=== PATIENT | male | born 1950 | race Caucasian/White ===

== ENCOUNTER → 2017-02-20 | Outpatient (CLI) | payer OTHER ==
[~2017-02-20] MED LIST: IOPAMIDOL (ISOVUE 370) 100 ML BTL IV ONE
== END ==
LOC: FIMAGING 08:52
PROVIDERS: ATTEND Nurse Practitioner Adult Health
DX: I71.2 Thoracic aortic aneurysm, without rupture (principal); I25.10 Atherosclerotic heart disease of native coronary artery without angina pectoris
CPT/HCPCS: 71275; Q9967

== ENCOUNTER 2017-04-15 09:51 | Inpatient (IN) | payer OTHER ==
[2017-04-15] MEDS ORDERED: FAMOTIDINE 20 MG TAB PO ONE (09:57)
[2017-04-15] MEDS ORDERED: diphenhydrAMINE 25 MG CAP PO ONE (09:57)
[2017-04-15] MEDS ORDERED: DIAZEPAM 5 MG TAB PO ONE (09:57)
[2017-04-15] MEDS ORDERED: NS 1,000 ML IV ONE (09:57)
[2017-04-15] MEDS ORDERED: ASPIRIN EC 325 MG TAB PO ONE (09:57)
--- NOTE | 2017-04-15 10:17 | CPEKG ---
Heart Rate: 51 RR Interval: 1176 P-R Interval: 188 QRSD Interval: 84 QT Interval: 444 QTC Interval: 409 P [place]: 46 QRS [place]: -40 T Wave [place]: 33 EKG Severity - ABNORMAL ECG - EKG Impression: SINUS RHYTHM EKG Impression: LEFT ANTERIOR FASCICULAR BLOCK EKG Impression: LEFT VENTRICULAR HYPERTROPHY Electronically Signed By: Gama Traylor 17-Apr-2017 13:08:29
[2017-04-15 10:48] LABS: PLATELET COUNT 142 10^3/uL (150-400)
[2017-04-15 10:57] LABS: INR 1.01 (0.83-1.16); PROTIME(PATIENT) 13.5 SEC (12.0-15.0)
[2017-04-15] MEDS ORDERED: LIDOCAINE 1% 300 MG/30 ML SDV ONE (11:30)
[2017-04-15] MEDS ORDERED: fentaNYL 100 MCG/2 ML INJ ONE (11:31)
[2017-04-15] MEDS ORDERED: MIDAZOLAM 2 MG/2 ML VIAL ONE (11:31)
[2017-04-15] MEDS ORDERED: IOPAMIDOL (ISOVUE-370) 150 ML BTL IV ONE (11:31)
[2017-04-15] MEDS ORDERED: VERAPAMIL 5 MG/2 ML VIAL ONE (15:18)
[2017-04-15] MEDS ORDERED: HEPARIN 10,000 UNIT/10 ML MDV (1,000 UNIT/ML) ONE (15:18)
--- NOTE | 2017-04-15 18:39 | PDGENHP ---
History and Physical - Chief Complaint enlarging aorta - History of Present Illness 65 yo male with nonobstructive CAD and a dilated ascending aorta, seen by surveillance CTA in Feb 2017 to have a slight increase in internal diameter of the mid ascending aorta from 4.7 cm to 4.9 cm, and elected to proceed with ascending aortic replacement. No arch vessel involvement or structural abnormalities of the aortic valve. Admitted in advance of scheduled surgery to complete risk stratification. Has abided by activity restrictions (resistance training) and maintained good control of his BP. Denies any perceivable functional limitations. History Information - Allergies/Home Medication List Allergies/Adverse Reactions: No Known Allergies Allergy (Verified 03/13/17 14:34) Home Medications: Atorvastatin Calcium [Lipitor 80 mg] 80 mg PO HS 03/11/17 [Last Taken 04/14/17] Herbals/Supplements -Info Only 1 ea PO DAILY 03/11/17 [Last Taken 03/18/17] MIRTAZAPINE [Remeron 7.5 mg] 7.5 mg PO HS 03/11/17 [Last Taken 04/14/17] Multivitamins [Multivitamin (*)] 1 each PO DAILY 03/11/17 [Last Taken 03/18/17] [place]-3 Fatty Acids [Fish Oil 1000 mg (*)] 1,000 mg PO DAILY 03/11/17 [Last Taken 03/18/17] PARoxetine HCL [Paxil 20mg (*)] 20 mg PO HS 03/11/17 [Last Taken 04/14/17] clonazePAM [Klonopin (*)] 0.25 mg PO HS 04/14/17 [Last Taken 04/14/17] I have personally reviewed and updated: family history, medical history, social history - Past Medical History coronary artery disease ([facility] in 2016 notable for 20% ostial LAD lesion and luminal irregs of RCA), cataracts (traumatic, left eye; permanent blurry vision) , hypertension, hyperlipidemia Additional medical history: anxiety with depression - Surgical History Reports: no pertinent surgical hx - Family History Positive for: vascular disease, CAD - Social History Smoking Status: Former smoker (stopped over 30 yrs ago) Review of Systems Review of Systems: Constitutional: Reports: no symptoms EENMT: Reports: no symptoms Cardiac: Reports: no symptoms Respiratory: Reports: no symptoms Gastrointestinal: Reports: no symptoms Genitourinary: Reports: no symptoms Muscolosketal: Reports: no symptoms Skin: Reports: no symptoms Neurological: Reports: no symptoms Hematologic/Lymphatic: Reports: no symptoms Physical Exam Physical Exam: Temp Pulse Resp BP Pulse Ox 36.4 C 42 L 14 118/75 95 04/15/17 17:51 04/15/17 17:51 04/15/17 17:51 04/15/17 17:51 04/15/17 17:51 Constitutional: no apparent distress, appears nourished Eyes: anicteric sclera Ears, Nose, Mouth, Throat: moist mucous membranes, other (no visible dental disrepair) Cardiovascular: regular rate and rhythym, diastolic murmur (faint) Peripheral Pulses: 2+: dorsalis-pedis (R), dorsalis-pedis (L) Respiratory: clear to auscultation Gastrointestinal: normoactive bowel sounds, soft, non-tender abdomen Genitourinary: no bladder fullness Skin: warm, normal color, no rashes or abrasions Musculoskeletal: other (symmetric tone) Psychiatric: interacting appropriately, not anxious Lab Data & Imaging Review 04/15/17 10:30 04/16/17 05:51 WBC 4.21 10^3/uL (3.80-9.50) 04/15/17 10:30 RBC 4.79 10^6/uL (4.40-6.38) 04/15/17 10:30 Hgb 15.9 g/dL (13.7-17.5) 04/15/17 10:30 Hct 44.5 % (40.0-51.0) 04/15/17 10:30 MCV 92.9 fL (81.5-99.8) 04/15/17 10:30 MCH 33.2 pg (27.9-34.1) 04/15/17 10:30 MCHC 35.7 g/dL (32.4-36.7) 04/15/17 10:30 RDW 12.8 % (11.5-15.2) 04/15/17 10:30 Plt Count 142 10^3/uL (150-400) L 04/15/17 10:30 MPV 9.4 fL (8.7-11.7) 04/15/17 10:30 Neut % (Auto) 54.3 % (39.3-74.2) 04/15/17 10:30 Lymph % (Auto) 29.5 % (15.0-45.0) 04/15/17 10:30 [place] % (Auto) 10.5 % (4.5-13.0) 04/15/17 10:30 Eos % (Auto) 4.0 % (0.6-7.6) 04/15/17 10:30 Baso % (Auto) 1.2 % (0.3-1.7) 04/15/17 10:30 Nucleat RBC Rel Count 0.0 % (0.0-0.2) 04/15/17 10:30 Absolute Neuts (auto) 2.29 10^3/uL (1.70-6.50) 04/15/17 10:30 Absolute Lymphs (auto) 1.24 10^3/uL (1.00-3.00) 04/15/17 10:30 Absolute Monos (auto) 0.44 10^3/uL (0.30-0.80) 04/15/17 10:30 Absolute Eos (auto) 0.17 10^3/uL (0.03-0.40) 04/15/17 10:30 Absolute Basos (auto) 0.05 10^3/uL (0.02-0.10) 04/15/17 10:30 Absolute Nucleated RBC 0.00 10^3/uL (0-0.01) 04/15/17 10:30 Immature Gran % 0.5 % (0.0-1.1) 04/15/17 10:30 Immature Gran # 0.02 10^3/uL (0.00-0.10) 04/15/17 10:30 PT 13.5 SEC (12.0-15.0) 04/15/17 10:30 INR 1.01 (0.83-1.16) 04/15/17 10:30 Sodium 144 mEq/L (135-145) 04/15/17 10:30 Potassium 4.7 mEq/L (3.5-5.2) 04/15/17 10:30 Chloride 106 mEq/L (97-110) 04/15/17 10:30 Carbon Dioxide 23 mEq/l (22-31) 04/15/17 10:30 Anion Gap 15 mEq/L (8-16) 04/15/17 10:30 BUN 24 mg/dL (7-23) H 04/15/17 10:30 Creatinine 1.1 mg/dL (0.7-1.3) 04/15/17 10:30 Estimated GFR > 60 04/15/17 10:30 Glucose 90 mg/dL (70-100) 04/15/17 10:30 Hemoglobin A1c 5.5 % (4.0-6.0) 04/15/17 10:30 Estim Average Glucose 111 mg/dL (68-126) 04/15/17 10:30 Calcium 9.5 mg/dL (8.5-10.4) 04/15/17 10:30 Magnesium 1.8 mg/dL (1.6-2.3) 04/15/17 10:30 Triglycerides 91 mg/dL (40-150) 04/15/17 10:30 Cholesterol 133 mg/dL (140-220) L 04/15/17 10:30 Cholesterol Risk Factr 0.8 (0.2-1.0) 04/15/17 10:30 LDL Cholesterol, Calc 81 mg/dL (80-100) 04/15/17 10:30 LDL Risk Factor 0.8 (0.2-1.0) 04/15/17 10:30 VLDL Cholesterol 18 mg/dL (8-25) 04/15/17 10:30 Non-HDL Cholesterol 99 mg/dL (90-129) 04/15/17 10:30 HDL Cholesterol 34 mg/dL (40-65) L 04/15/17 10:30 LDL/HDL Ratio 2.38 RATIO (1.00-3.64) 04/15/17 10:30 Cholesterol/HDL Ratio 3.91 RATIO (1.00-4.97) 04/15/17 10:30 Patient ABO/Rh O POSITIVE 04/15/17 10:30 Antibody Screen NEGATIVE 04/15/17 10:30 Imaging Review: Feb 2017 CTA results reviewed by Dr Davis with patient and spouse in clinic. [facility] today, to my view, neg for significant progression of LAD or RCA disease. Visualized and Interpreted EKG results: Yes EKG Interpretation: Positive for: LVH, other (SB 50, LAFB) Assessment & Plan Assessment: Aneurysmal ascending aorta Trileaflet aortic valve with mild AI and no Nonobstructive CAD with preserved biventricular systolic fx Sinus bradycardia Plan: Ascending aortic replacement in am. Consents per Dr Davis.
[2017-04-15] MEDS ORDERED: ATROPINE SULFATE 1 MG/10 ML SYR IVP PRN (19:18)
[2017-04-15] MEDS ORDERED: CHLORHEXIDINE GLUC HIBICLENS 118 ML BTL TP SCH (21:00)
[2017-04-15] MEDS: clonazePAM 0.5 MG TAB PO SCH (22:24)
[2017-04-15] MEDS: PARoxetine HCL 20 MG TAB PO SCH (22:24)
[2017-04-15] MEDS: MIRTAZAPINE 15 MG TAB PO SCH (22:25)
[2017-04-15] MEDS: MUPIROCIN 2% 22 GM OINT NS SCH (22:29)
--- NOTE | 2017-04-16 00:15 | CPIP ---
[f rep st] INVASIVE CARDIAC PROCEDURE DATE OF PROCEDURE: 04/15/2017 PROCEDURE: Coronary angiography. INDICATION: Preoperative evaluation prior to ascending aortic aneurysm repair. ACCESS: Patient was prepped and draped in a sterile fashion. 1% lidocaine was used to anesthetize t he right radial region. A 5-[place] introducer sheath was placed selectively into the right radial ar gab via modified Seldinger technique. The right radial access was aborted secondary to extensive to rtuosity involving the right brachial artery. 1% lidocaine was used to anesthetize the right inguina l region. A 6-[place] introducer sheath was placed selectively into the right common femoral artery v ia modified Seldinger technique. CORONARY ANGIOGRAPHY: A 6-[place] JL 4.5 catheter was advanced to the left main coronary artery and i mages obtained. The left main coronary artery bifurcated into an LAD and circumflex coronary arterie s. The left main coronary artery appeared normal. The left anterior descending coronary artery had a proximal 30% to 40% stenosis present, as well as sequential 30% stenosis in the mid vessel. The fi rst diagonal artery was a large vessel and was branching. The first diagonal artery was free of any significant disease. The circumflex coronary artery was a large vessel but was nondominant. Circumf shaista coronary artery had a discrete 20% stenosis in the mid vessel. A 6-[place] JR4 was advanced to th e right coronary artery and images obtained. The right coronary artery was dominant. The right rhea nary artery supplied much of the inferolateral wall. The right coronary artery had mild diffuse dise ase throughout. There was no stenosis greater than 10%. COMPLICATIONS: None. CONCLUSIONS: 1. [id number] coronary artery disease without flow limitation. 2. Plan is for medical management. /[id number]/MODL
[2017-04-16] MEDS ORDERED: CITRATE DEXTROSE SOLN 500 ML BAG MISC ONE (06:00)
[2017-04-16] MEDS ORDERED: niCARdipine/NACL 200 ML IV ONE (06:00)
[2017-04-16] MEDS ORDERED: ceFAZolin 2 GM/SWFI 2 GM/20 ML SYR IVP ONE (06:00)
[2017-04-16] MEDS ORDERED: PHENYLEPHRINE HCL 50 MG in NS 250 ML IV ONE (06:00)
[2017-04-16] MEDS ORDERED: *INFUSION*TRANEX ACID 1,000 MG/NS 50 ML IV ONE ×2 (06:00)
[2017-04-16] MEDS ORDERED: DOPamine 400 MG in D5W 250 ML IV ONE (06:00)
[2017-04-16] MEDS ORDERED: MANNITOL 25% 12.5 GM/50 ML VIAL IVP ONE (06:00)
[2017-04-16] MEDS ORDERED: SODIUM BICARBONATE 20 MEQ, LIDOCAINE 1% 10 ML in NORMOSOL-R 1,000 ML MISC ONE (06:00)
[2017-04-16] MEDS ORDERED: INSULIN REGULAR HUMAN 100 UNIT in NS 100 ML IV ONE (06:00)
[2017-04-16] MEDS ORDERED: TRANEXAMIC ACID 1,000 MG in NS 100 ML IV ONE (06:00)
[2017-04-16] MEDS ORDERED: CALCIUM CHLORIDE 1 GM/10 ML INJ ONE ×3 (06:13→20:50)
[2017-04-16] MEDS ORDERED: PROTAMINE SULFATE 50 MG/5 ML VIAL IVP ONE (06:13)
[2017-04-16] MEDS ORDERED: NA BICARBONATE 50 MEQ/50 ML VIAL ONE (06:14)
[2017-04-16] MEDS ORDERED: MILRINONE/DEXTROSE/100 ML BAG IV ONE (06:14)
[2017-04-16] MEDS ORDERED: HEPARIN 10,000 UNIT/10 ML MDV (1,000 UNIT/ML) ONE ×2 (06:14→06:17)
[2017-04-16] MEDS ORDERED: ADENOSINE 6 MG/2 ML VIAL ONE (06:15)
[2017-04-16] MEDS ORDERED: AMIODARONE HCL 150 MG/3 ML VIAL ONE ×2 (06:15→06:18)
[2017-04-16] MEDS ORDERED: ceFAZolin 1 GM VIAL ONE (06:15)
[2017-04-16] MEDS ORDERED: niCARdipine/NACL/200 ML BAG IV ONE (06:15)
[2017-04-16] MEDS ORDERED: ALBUMIN 5% 250 ML BOTTLE IV ONE (06:16)
[2017-04-16] MEDS ORDERED: CITRATE DEXTROSE SOLN 500 ML BAG ONE (06:17)
[2017-04-16] MEDS ORDERED: LIDOCAINE 2% 100 MG/5 ML SYR ONE (06:17)
[2017-04-16] MEDS ORDERED: MAGNESIUM SULFATE 1 GM/2 ML VIAL ONE (06:18)
[2017-04-16] MEDS ORDERED: methylPREDNISolone SOD SUCC 1 GM/8 ML VIAL ONE (06:18)
[2017-04-16] MEDS: MUPIROCIN 2% 22 GM OINT NS SCH ×2 (06:35→20:42)
[2017-04-16] MEDS ORDERED: MIDAZOLAM 2 MG/2 ML VIAL IVP ONE (07:02)
--- NOTE | 2017-04-16 07:02 | PDANEPAE ---
ANE History of Present Illness 66 yo for repair ascending aortic anuersym ANE Past Medical History - Cardiovascular History Hx Hypertension: No Hx Arrhythmias: No Hx Chest Pain: No Hx Coronary Artery / Peripheral Vascular Disease: Yes Hx CHF / Valvular Disease: No Hx Palpitations: No - Pulmonary History Hx COPD: No Hx Asthma/Reactive Airway Disease: No Hx Recent Upper Respiratory Infection: No Hx Oxygen in Use at Home: No Hx Sleep Apnea: No Sleep Apnea Screening Result - Last Documented: Negative - Neurologic History Hx Cerebrovascular Accident: No Hx Seizures: No Hx Dementia: No - Endocrine History Hx Diabetes: No - Renal History Hx Renal Disorders: No - Liver History Hx Hepatic Disorders: No - Neurological & Psychiatric Hx Hx Neurological and Psychiatric Disorders: Yes Neurological / Psychiatric History Comment: depression over the last few years - Cancer History Hx Cancer: No - Congenital Disorder History Hx Congenital Disorders: Yes Congenital History Comment: mother had AAA - GI History Hx Gastrointestinal Disorders: No - Other Health History Other Health History: none - Chronic Pain History Chronic Pain: No - Surgical History Prior Surgeries: none ANE Review of Systems Review of Systems: - Exercise capacity METS (RN): 5 METS ANE Patient History - Allergies Allergies/Adverse Reactions: No Known Allergies Allergy (Verified 03/13/17 14:34) - Home Medications Home medications: home medication list seen and reviewed Home Medications: Atorvastatin Calcium [Lipitor 80 mg] 80 mg PO HS 03/11/17 [Last Taken 04/14/17] Herbals/Supplements -Info Only 1 ea PO DAILY 03/11/17 [Last Taken 03/18/17] MIRTAZAPINE [Remeron 7.5 mg] 7.5 mg PO HS 03/11/17 [Last Taken 04/14/17] Multivitamins [Multivitamin (*)] 1 each PO DAILY 03/11/17 [Last Taken 03/18/17] [place]-3 Fatty Acids [Fish Oil 1000 mg (*)] 1,000 mg PO DAILY 03/11/17 [Last Taken 03/18/17] PARoxetine HCL [Paxil 20mg (*)] 20 mg PO HS 03/11/17 [Last Taken 04/14/17] clonazePAM [Klonopin (*)] 0.25 mg PO HS 04/14/17 [Last Taken 04/14/17] - NPO status NPO Status: no food or drink >8 hours NPO Since - Liquids (Date): 04/16/17 NPO Since - Liquids (Time): 00:01 NPO Since - Solids (Date): 04/16/17 NPO Since - Solids (Time): 00:01 - Anes Hx Anes Hx: no prior problems - Smoking Hx Smoking Status: Former smoker (stopped over 30 yrs ago) - Family Anes Hx Family Hx Anesthesia Complications: none ANE Labs/Vital Signs - Labs Result Diagrams: 04/15/17 10:30 04/16/17 05:51 - Vital Signs Blood Pressure: 105/64 Heart Rate: 52 Respiratory Rate: 12 O2 Sat (%): 93 Height: 5 ft 10.08 in Weight: 84.2 kg ANE Physical Exam - Airway Neck exam: FROM Mallampati Score: Class 2 Mouth exam: normal dental/mouth exam - Pulmonary Pulmonary: no respiratory distress - Cardiovascular Cardiovascular: regular rate and rhythym - ASA Status ASA Status: III ANE Anesthesia Plan Anesthesia Plan: general endotracheal anesthesia Lines/Monitors: arterial line, central line, WU
[2017-04-16] MEDS ORDERED: LR 1,000 ML IV ONE (07:07)
[2017-04-16] MEDS ORDERED: PROPOFOL/EMULSION 500 MG/50 ML BOTTLE IV ONE (07:18)
[2017-04-16] MEDS ORDERED: fentaNYL 250 MCG/5 ML INJ ONE (07:18)
[2017-04-16] MEDS ORDERED: REMIFENTANIL HCL 1 MG VIAL ONE (07:18)
[2017-04-16] MEDS ORDERED: DEXMEDETOMIDINE HCL 400 MCG in NS 100 ML IV SCH (07:30)
[2017-04-16] MEDS ORDERED: DESFLURANE 240 ML BOTTLE IH ONE (08:25)
[2017-04-16] MEDS ORDERED: HYDROmorphONE/DILAUDID 2 MG/ML INJ ONE (08:46)
[2017-04-16] MEDS ORDERED: MINERAL OIL 10 ML VIAL ONE (09:14)
[2017-04-16] MEDS ORDERED: ROCURONIUM 100 MG/10 ML VIAL ONE (10:02)
[2017-04-16] MEDS ORDERED: DEXAMETHASONE 4 MG/ML VIAL ONE (10:02)
[2017-04-16] MEDS ORDERED: SUGAMMADEX SODIUM 200 MG/2 ML VIAL IVP ONE (10:03)
[2017-04-16] MEDS ORDERED: ONDANSETRON 4 MG/2 ML VIAL ONE (10:03)
[2017-04-16] MEDS ORDERED: ONDANSETRON 4 MG/2 ML VIAL IVP PRN (10:27)
[2017-04-16] MEDS ORDERED: ONDANSETRON DISINTEGRATING 4 MG TAB PO PRN (10:27)
[2017-04-16] MEDS ORDERED: fentaNYL 100 MCG/2 ML INJ IVP PRN (10:27)
[2017-04-16] MEDS ORDERED: POTASSIUM Cl (KCl) 50 ML IV PRN (10:27)
[2017-04-16] MEDS ORDERED: LACTULOSE 20 GM/30 ML UDCUP PO PRN (10:27)
[2017-04-16] MEDS ORDERED: D50W 25 GM/50 ML SYR IVP PRN (10:27)
[2017-04-16] MEDS ORDERED: ACETAMINOPHEN 650 MG SUPP PR PRN (10:27)
[2017-04-16] MEDS ORDERED: ACETAMINOPHEN 325 MG TAB PO PRN (10:27)
[2017-04-16] MEDS ORDERED: PANTOPRAZOLE SODIUM 40 MG VIAL IVP ONE (10:27)
[2017-04-16] MEDS ORDERED: MAGNESIUM SULF 2 GM/WATER 50 ML IV ONE (10:27)
[2017-04-16] MEDS ORDERED: POLYETHYLENE GLYCOL 3350 17 GM PKT PO PRN (10:27)
[2017-04-16] MEDS ORDERED: MAGNESIUM HYDROXIDE 30 ML UDCUP PO PRN (10:27)
[2017-04-16] MEDS ORDERED: SODIUM CL NASAL 45 ML BTL EACHNARE PRN (10:27)
[2017-04-16] MEDS ORDERED: BISACODYL 10 MG SUPP PR PRN (10:27)
[2017-04-16] MEDS ORDERED: CEPACOL LOZENGE PO PRN (10:27)
[2017-04-16] MEDS ORDERED: MEPERIDINE 25 MG/ML SYR IVP PRN (10:27)
[2017-04-16] MEDS ORDERED: METOCLOPRAMIDE 10 MG/2 ML VIAL IVP PRN (10:27)
[2017-04-16] MEDS ORDERED: INSULIN REGULAR HUMAN 100 UNIT in NS 100 ML IV SCH (10:30)
[2017-04-16] MEDS ORDERED: NS 1,000 ML IV SCH (10:30)
[2017-04-16] MEDS ORDERED: IPRATROPIUM/ALBUTEROL 3 ML DEYVIAL IH PRN (10:34)
[2017-04-16] MEDS: KETOROLAC 15 MG/1 ML SDV IVP SCH ×2 (11:20→18:38)
[2017-04-16] MEDS ORDERED: fentaNYL 25 MCG PATCH TD SCH ×2 (11:30)
[2017-04-16] MEDS: ALBUMIN 5% 250 ML IV PRN ×2 (12:31→13:12)
[2017-04-16] MEDS ORDERED: ALBUMIN 5% 500 ML IV ONE (14:00)
[2017-04-16] MEDS: ceFAZolin 2 GM/DEXTROSE 100 ML IV SCH ×2 (14:16→22:13)
--- NOTE | 2017-04-16 17:48 | GOP ---
[f rep st] OPERATIVE REPORT DATE OF OPERATION: 04/16/2017 SURGEON: Daron Davis DO ST[employer] SP[employer]ER OPERATOR: Gabi Johnson PA-C. ANESTHESIOLOGIST: Magali Carroll MD. PREOPERATIVE DIAGNOSIS: Ascending aortic aneurysm with a familial history of aneurysm disease. POSTOPERATIVE DIAGNOSIS: Ascending aortic aneurysm with a familial history of aneurysm disease. PROCEDURE PERFORMED: 1. Replacement of ascending aorta with a #28 Hemashield graft. 2. Atrial clip to left atrial appendage. FINDINGS: Patient was noted to have a 5 cm external dimension ascending aorta. He was offered serial observation versus early surgery. Given his high activity level and extensive travel schedule, he and his were quite concerned that he could have an event away from serious medical care. I advised him that his risk of dissection was around 4% per year. He was adamant about proceeding with surgery, which I quoted a risk of less than 1%. Diagnostic cath revealed moderate coronary disease with no evidence of high- grade lesions. DESCRIPTION OF PROCEDURE: He was consented for surgery, brought to the operating room, intubated, monitoring lines were placed. He was prepped and draped in a sterile classical manner. After time-out was confirmed with the team. A sternotomy was performed. He was heparinized, cannulated in the transverse arch. The aneurysm measured 5 cm externally and was quite thin- walled. Echo revealed no evidence of calcification or plaque in the transverse arch where he was cannulated with a long cannula placed beyond the left subclavian to avoid stroke. Right atrial cannula was placed as was a retrograde and antegrade cardioplegic catheter. He was noted to have trace aortic insufficiency. We then initiated cardiopulmonary bypass. A cross-clamp was placed at the base of the innominate artery. Antegrade and subsequent retrograde cardioplegia, topical hypothermia, and systemic cooling were repeated throughout the procedure. The aneurysm was excised from the sinotubular junction where it measured 30 mm to the innominate artery. We then placed a Hemashield graft end-to-side reinforced in several sites with continuous running 3-0 Prolene suture with subsequent BioGlue applied externally. The valve was trileaflet, and we attempted to reduce the size of the sinotubular junction in order to improve coaptation of the leaflets and avoid any further aortic insufficiency and possibly correct his underlying AI. We then placed a 35 mm hemoclip on the left atrial appendage. He was kept in Trendelenburg when the cross-clamp was removed with suction on the ascending aortic vent. Spontaneous cardiac activity was noted to resume. When no further air was identified, the LV sump was removed. We intermittently aspirated through the LV apex, removing the apical air. Again, keeping in Trendelenburg and a sump on, he was weaned from bypass without difficulty. Valvular function appeared to be somewhat improved. Heparin was reversed with protamine. All cannulation sites were oversewn. Two ventricular pacing wires, 2 mediastinal drains were placed. The thymic fat and pericardium were closed. Chest was closed in standard fashion. Patient was returned to ICU extubated in the OR in stable condition. /[id number]/MODL MTDD
--- NOTE | 2017-04-16 18:23 | GCON ---
[f rep st] CONSULTATION PULMONARY/CRITICAL CARE CONSULTATION DATE OF CONSULTATION: 04/16/2017 REFERRING PHYSICIAN: Daron Davis DO REASON FOR REFERRAL: Evaluation and management of hyperglycemia and atelectasis with hypoxemia. HISTORY: The patient is a 66-year-old male who was noted to have an ascending aortic aneurysm, which increased from 4.7 to 4.[address] scan in February 2017. He elected to proceed with an ascending aorta replacement. He underwent surgery today, and his intraoperative course was unremarkable. Pos toperatively, he is comfortable, resting, on supplemental oxygen. He has a fair amount of substernal chest pain. PAST MEDICAL HISTORY: 1. Hypertension. 2. Hyperlipidemia. 3. Depression. 4. Anxiety. ALLERGIES: None. SOCIAL HISTORY: The patient is a former smoker. FAMILY HISTORY: Positive for vascular disease and coronary artery disease. REVIEW OF SYSTEMS: A 10-point review of systems adds nothing to the history of present. PHYSICAL EXAMINATION: GENERAL: The patient is awake, alert, in no acute distress. VITAL SIGNS: Bl ood pressure is 105/64 with a heart rate of 52. He is afebrile. Oxygen saturations are currently 93 % on 2 L. His oxygen saturations were 88% on room air last night. HEENT: Normocephalic and atrauma tic. No icterus. NECK: No JVD. Trachea is midline. CHEST: Clear to auscultation. CARDIAC: Reg ular rate and rhythm without murmur. ABDOMEN: Soft and nontender. Bowel sounds are present. EXTRE MITIES: No clubbing, cyanosis, or edema. NEURO: The patient is awake and alert. He is able to mov e all extremities with no gross motor or sensory deficits. LABORATORY DATA: A CBC preoperatively was normal. Chemistry group preoperatively was remarkable onl y for a BUN that was mildly elevated at 26. Postoperatively, blood sugars were in the 150s, but are now in the low 100s with starting of insulin drip. A chest x-ray shows some atelectasis in the bases and no other acute changes. Images reviewed by me. ASSESSMENT: 1. Ascending aortic aneurysm status post repair earlier today. The intraoperative course was unrema rkable. 2. Mild hypoxemia. This is likely due to atelectasis. Corrected with low-flow oxygen. 3. Hyperglycemia. This may be related to stress of surgery. The patient does not have a history of diabetes. His blood sugars have come down with an insulin drip. RECOMMENDATIONS: 1. Continue insulin drip. 2. Repeat and follow hemoglobin. 3. Incentive spirometer for atelectasis, as well as pain control. /[id number]/MODL
[2017-04-16] MEDS: clonazePAM 0.5 MG TAB PO SCH (20:39)
[2017-04-16] MEDS: PARoxetine HCL 20 MG TAB PO SCH (20:40)
[2017-04-16] MEDS: MIRTAZAPINE 15 MG TAB PO SCH (20:40)
[2017-04-16] MEDS: ATORVASTATIN CALCIUM 40 MG TAB PO SCH (20:41)
[2017-04-17] MEDS: KETOROLAC 15 MG/1 ML SDV IVP SCH ×2 (00:08→06:00)
[2017-04-17] MEDS: ceFAZolin 2 GM/DEXTROSE 100 ML IV SCH ×3 (06:00→20:12)
[2017-04-17 06:01] LABS: PLATELET COUNT 158 10^3/uL (150-400)
[2017-04-17] MEDS: HEPARIN 5,000 UNIT/0.5 ML SYR SC SCH ×3 (06:48→20:12)
--- NOTE | 2017-04-17 07:44 | SOAPPROG ---
SOAP Progress Note Assessment/Plan: POD #1: Asc ao replacement with #28 graft, AtriClip JAISON Asc ao aneurysm s/p replacement - CT to bulb suction - SCDs/heparin SQ for DVT prophylaxis - PT/OT - Transfer to PCU Acute blood loss anemia - Stable without the need for transfusions Subjective: Feels well. Denies pain/SOB. Objective: Vital Signs Temp Pulse Resp BP Pulse Ox 36.5 C 65 18 120/66 96 04/17/17 04:00 04/17/17 06:00 04/17/17 06:00 04/17/17 06:00 04/17/17 06:00 Laboratory Results 04/17/17 05:30 04/17/17 05:30 04/16/17 04/17/17 04/18/17 05:59 05:59 05:59 Intake Total 200 1910 Output Total 1675 Balance 200 235 PT 13.5 SEC (12.0-15.0) 04/15/17 10:30 INR 1.01 (0.83-1.16) 04/15/17 10:30 Physical Exam - Physical Exam General Appearance: WD/WN, alert, no apparent distress EENT: No scleral icterus (R), No scleral icterus (L) Neck: normal inspection Respiratory: No respiratory distress Cardiac/Chest: regular rate, rhythm Abdomen: non-tender, soft, No distended Skin: normal color, warm/dry Extremities: No pedal edema Neuro/Psych: no motor/sensory deficits, alert, normal mood/affect, oriented x 3 ICD10 Worksheet Patient Problems: Problems Problem Status Onset Coronary artery disease Acute Thoracic aortic aneurysm without rupture Acute
[2017-04-17] MEDS: PANTOPRAZOLE SODIUM 40 MG TAB PO SCH (07:55)
[2017-04-17] MEDS: MUPIROCIN 2% 22 GM OINT NS SCH ×2 (07:55→20:14)
[2017-04-17] MEDS: ASPIRIN 81 MG CHEWABLE TAB PO SCH (07:55)
[2017-04-17] MEDS ORDERED: KETOROLAC 15 MG/1 ML SDV IVP PRN (08:10)
--- NOTE | 2017-04-17 11:58 | ASMTCMCOM ---
CM Note CM Note Notes: Patient is POD #1 ascending aorta replacement with Dr Davis. He is stable and doing well; intial PT eval recommends home. He lives with his . No CM needs anticipated but if they arise, we will assist. Date Signed: 04/17/2017 11:57 AM Electronically Signed By:Leslie Irby RN
[2017-04-17] MEDS: KETOROLAC 30 MG/1 ML SDV IVP PRN ×2 (14:24→20:31)
[2017-04-17] MEDS: PARoxetine HCL 20 MG TAB PO SCH (20:11)
[2017-04-17] MEDS: clonazePAM 0.5 MG TAB PO SCH (20:11)
[2017-04-17] MEDS: MIRTAZAPINE 15 MG TAB PO SCH (20:12)
[2017-04-17] MEDS: ATORVASTATIN CALCIUM 40 MG TAB PO SCH (20:12)
[2017-04-17] MEDS: SENNOSIDES/DOCUSATE SODIUM TAB PO SCH (20:12)
[2017-04-18] MEDS: KETOROLAC 30 MG/1 ML SDV IVP PRN (03:04)
[2017-04-18] MEDS: HEPARIN 5,000 UNIT/0.5 ML SYR SC SCH ×3 (06:17→20:52)
--- NOTE | 2017-04-18 06:22 | SOAPPROG ---
SOAP Progress Note Assessment/Plan: POD #2: Asc ao replacement with #28 graft, AtriClip JAISON Asc ao aneurysm s/p replacement - CT and wires removed this AM - SCDs/heparin SQ for DVT prophylaxis - PT/OT Acute blood loss anemia - Stable without the need for transfusions Disposition - Home Friday without home services Subjective: Denies CP/SOB. Objective: Vital Signs Temp Pulse Resp BP Pulse Ox 36.5 C 59 L 16 99/61 L 90 L 04/18/17 04:00 04/18/17 04:00 04/18/17 04:00 04/18/17 04:00 04/18/17 04:00 Laboratory Results 04/17/17 05:30 04/17/17 05:30 04/17/17 04/18/17 04/19/17 05:59 05:59 05:59 Intake Total 1910 1440 Output Total 1675 720 Balance 235 720 PT 13.5 SEC (12.0-15.0) 04/15/17 10:30 INR 1.01 (0.83-1.16) 04/15/17 10:30 Physical Exam - Physical Exam General Appearance: WD/WN, alert, no apparent distress EENT: No scleral icterus (R), No scleral icterus (L) Neck: normal inspection Respiratory: No respiratory distress Cardiac/Chest: regular rate, rhythm Abdomen: non-tender, soft, No distended Skin: normal color, warm/dry Extremities: No pedal edema Neuro/Psych: no motor/sensory deficits, alert, normal mood/affect, oriented x 3 ICD10 Worksheet Patient Problems: Problems Problem Status Onset Coronary artery disease Acute Thoracic aortic aneurysm without rupture Acute
[2017-04-18 06:37] LABS: PLATELET COUNT 112 10^3/uL (150-400)
[2017-04-18] MEDS: traMADol 50 MG TAB PO PRN ×2 (08:28→20:44)
[2017-04-18] MEDS: MUPIROCIN 2% 22 GM OINT NS SCH (08:38)
[2017-04-18] MEDS: SENNOSIDES/DOCUSATE SODIUM TAB PO SCH ×2 (08:38→20:47)
[2017-04-18] MEDS: OMEGA-3 FATTY ACIDS 1,000 MG CAP PO SCH (08:38)
[2017-04-18] MEDS: PANTOPRAZOLE SODIUM 40 MG TAB PO SCH (08:38)
[2017-04-18] MEDS: MULTIVITAMINS 1 EACH TAB PO SCH (08:38)
[2017-04-18] MEDS: ASPIRIN 81 MG CHEWABLE TAB PO SCH (08:38)
[2017-04-18] MEDS: FUROSEMIDE 40 MG TAB PO SCH (13:54)
[2017-04-18] MEDS: POTASSIUM CL 20 MEQ TAB PO SCH (13:55)
[2017-04-18] MEDS: ATORVASTATIN CALCIUM 40 MG TAB PO SCH (20:45)
[2017-04-18] MEDS: PARoxetine HCL 20 MG TAB PO SCH (20:45)
[2017-04-18] MEDS: MIRTAZAPINE 15 MG TAB PO SCH (20:45)
[2017-04-18] MEDS: clonazePAM 0.5 MG TAB PO SCH (20:46)
[2017-04-18] MEDS: HYDROCODONE/APAP 5/325 TAB PO PRN (22:52)
[2017-04-19] MEDS: HEPARIN 5,000 UNIT/0.5 ML SYR SC SCH ×3 (06:53→21:11)
--- NOTE | 2017-04-19 07:52 | SOAPPROG ---
SOAP Progress Note Assessment/Plan: Assessment: POD#3 Asc ao replacement with #28 hemashield graft, prophylactic AtriClip ligation JAISON Aneurysmal ascending aorta - Replaced from STJ to innominate with dacron interposition graft. Stable early postop course. No tachyarrhythmias. Adequately diuresing moderate fluid overload. CTs and wires out. Antithrombotic prophylaxis with ASA alone. Acute expected blood loss anemia - Stable. No blood or blood products transfused. Nonobstructive CAD with preserved LV systolic fx - Stable. Secondary prevention w ASA, statin, and BB as allowed by HR. Plan: Cont daily lasix 40 mg. Cont inc activity as tolerated. Wean O2. Dispo - Home tomorrow without services. 04/19/17 07:50 Subjective: Feels well. Improving mobility, ambulatory capacity and appetite. Satisfactory analgesia. Awaiting BM. Comfortable going home tomorrow. Objective: Vital Signs Temp Pulse Resp BP Pulse Ox 36.7 C 63 17 103/59 L 93 04/19/17 04:00 04/19/17 04:00 04/19/17 04:00 04/19/17 04:00 04/19/17 04:00 Laboratory Results 04/18/17 06:20 04/18/17 06:20 04/18/17 04/19/17 04/20/17 05:59 05:59 05:59 Intake Total 1440 2150 Output Total 1265 950 Balance 175 1200 PT 13.5 SEC (12.0-15.0) 04/15/17 10:30 INR 1.01 (0.83-1.16) 04/15/17 10:30 HR, rhythm and BP stable. Suppl O2 req down to 3 lpm, likely could wean to 2. Sl pos fluid balance, +3.6 overall. Physical Exam - Physical Exam General Appearance: alert, no apparent distress Respiratory: crackles (bases L>R), other (CT dressing CDI) Cardiac/Chest: regular rate, rhythm, friction rub, other (Sternum grossly stable. Sternotomy CDI) Abdomen: non-tender, soft Skin: warm/dry Extremities: other (no visible edema) ICD10 Worksheet Patient Problems: Problems Problem Status Onset Coronary artery disease Acute Thoracic aortic aneurysm without rupture Acute
[2017-04-19] MEDS ORDERED: IBUPROFEN 600 MG TAB PO PRN (08:00)
[2017-04-19] MEDS: SENNOSIDES/DOCUSATE SODIUM TAB PO SCH ×2 (08:57→21:11)
[2017-04-19] MEDS: POTASSIUM CL 20 MEQ TAB PO SCH (08:58)
[2017-04-19] MEDS: MULTIVITAMINS 1 EACH TAB PO SCH (08:59)
[2017-04-19] MEDS: HYDROCODONE/APAP 5/325 TAB PO PRN ×2 (08:59→21:10)
[2017-04-19] MEDS: FUROSEMIDE 40 MG TAB PO SCH (09:02)
[2017-04-19] MEDS: OMEGA-3 FATTY ACIDS 1,000 MG CAP PO SCH (09:02)
[2017-04-19] MEDS: PANTOPRAZOLE SODIUM 40 MG TAB PO SCH (09:02)
[2017-04-19] MEDS: ASPIRIN 81 MG CHEWABLE TAB PO SCH (09:02)
[2017-04-19] MEDS ORDERED: FUROSEMIDE 20 MG/2 ML VIAL IVP ONE (15:58)
[2017-04-19] MEDS ORDERED: POTASSIUM CL 10 MEQ TAB PO ONE (15:58)
[2017-04-19] MEDS: clonazePAM 0.5 MG TAB PO SCH (21:08)
[2017-04-19] MEDS: ATORVASTATIN CALCIUM 40 MG TAB PO SCH (21:08)
[2017-04-19] MEDS: MIRTAZAPINE 15 MG TAB PO SCH (21:10)
[2017-04-19] MEDS: PARoxetine HCL 20 MG TAB PO SCH (21:11)
[2017-04-20] MEDS: HEPARIN 5,000 UNIT/0.5 ML SYR SC SCH (07:31)
--- NOTE | 2017-04-20 08:18 | SOAPPROG ---
SOAP Progress Note Assessment/Plan: Assessment: POD#4 Asc ao replacement with #28 hemashield graft, prophylactic AtriClip ligation JAISON Aneurysmal ascending aorta - Replaced from STJ to innominate with dacron interposition graft. Stable early postop course. No tachyarrhythmias. Adequately diuresing moderate fluid overload. CTs and wires out. Antithrombotic prophylaxis with ASA alone. Acute expected blood loss anemia - Stable. No blood or blood products transfused. Nonobstructive CAD with preserved LV systolic fx - Stable. Secondary prevention w ASA, statin, and BB as allowed by HR. Plan: Ok for home today. Instructions re diet, meds, activity, wound care, and f/u to be reviewed in presence of . 04/20/17 08:16 Subjective: Feels well. No acute concerns. Ready for home. Objective: Vital Signs Temp Pulse Resp BP Pulse Ox 36.6 C 58 L 17 113/70 96 04/20/17 07:07 04/20/17 07:07 04/20/17 07:07 04/20/17 07:07 04/20/17 07:07 Laboratory Results 04/18/17 06:20 04/19/17 04/20/17 04/21/17 05:59 05:59 05:59 Intake Total 2150 1080 Output Total 950 1600 Balance 1200 -520 PT 13.5 SEC (12.0-15.0) 04/15/17 10:30 INR 1.01 (0.83-1.16) 04/15/17 10:30 HR predom 60s-70s, occ upper 50s. Stable suppl O2 req, desatting to 83% on RA. Adequate fluid balance. Physical Exam - Physical Exam General Appearance: alert, no apparent distress Respiratory: crackles (bibasilar) Cardiac/Chest: regular rate, rhythm, other (Sternum grossly stable. Sternotomy and CT sites CDI.) Abdomen: non-tender, soft Skin: warm/dry Extremities: swelling (trace) ICD10 Worksheet Patient Problems: Problems Problem Status Onset Coronary artery disease Acute Thoracic aortic aneurysm without rupture Acute
--- NOTE | 2017-04-20 08:20 | PDHOMEO2F ---
Home Oxygen Face to Face Home Orders: I certify that a physician or a nurse practitioner or physician's office assistant has had a [id number] encounter with this patient on the date of this order due to the diagnosis listed, which relates to the primary reason the patient requires home oxygen. Alternative treatments have been tried, or considered, and deemed ineffective. It is anticipated that supplemental oxygen will result in improvement with treatment. Home oxygen qualifying diagnosis: CAD SpO2 on room air (%): 83% Frequency of home oxygen needed: continuous Home oxygen liters per minute: 2 Home oxygen delivery device: nasal cannula Concentrator: Yes E-tanks for mobility and back up: Yes If ordering portable O2, is the patient mobile in the home?: Yes I certify that, based on these findings, the home oxygen is medically necessary for this patient for the following length of time. Length of time home oxygen needed: 1 month (postop recovery)
[2017-04-20] MEDS: OMEGA-3 FATTY ACIDS 1,000 MG CAP PO SCH (08:43)
[2017-04-20] MEDS: PANTOPRAZOLE SODIUM 40 MG TAB PO SCH (08:43)
[2017-04-20] MEDS: FUROSEMIDE 40 MG TAB PO SCH (08:44)
[2017-04-20] MEDS: HYDROCODONE/APAP 5/325 TAB PO PRN (08:44)
[2017-04-20] MEDS: MULTIVITAMINS 1 EACH TAB PO SCH (08:44)
[2017-04-20] MEDS: SENNOSIDES/DOCUSATE SODIUM TAB PO SCH (08:44)
[2017-04-20] MEDS: ASPIRIN 81 MG CHEWABLE TAB PO SCH (08:44)
--- NOTE | 2017-04-20 09:52 | PDDCSUM ---
Discharge Summary Discharge Summary: DATE OF ADMISSION: 04/16/17 DATE OF DISCHARGE: 04/20/17 DISPOSITION: Home, self-care PRINCIPAL ADMISSION DIAGNOSES: Enlarging ascending aorta PRINCIPAL DISCHARGE DIAGNOSES: 1. Nonobstructive coronary artery disease 2. Sinus bradycardia 3. Status post ascending aortic replacement with a dacron interposition graft 4. Status post prophylactic clip ligation of the left atrial appendage 4. Acute expected blood loss anemia HISTORY OF PRESENT ILLNESS: 65 yo male with nonobstructive CAD, and slight progression of ascending aortic dilatation, admitted in advance of scheduled aortic surgery to complete risk stratification. OTHER PERTINENT PAST MEDICAL HISTORY: 20% ostial LAD stenosis and luminal irregularities of RCA by last cath in 2015, HTN, hyperlipidemia, blurry vision left eye s/p traumatic cataract, anxiety with depression MEDICATIONS ON ADMISSION: Atorvastatin 80 mg HS, Fish oil 1,000 mg daily, MVI once daily, herbal supplement once daily, Clonazepam 0.25 mg HS, Remeron 7.5 mg HS, Paxil 20 mg HS ALLERGIES/SENSITIVITIES: NKDA CONSULTANTS: Pulmonology/critical care ([place]) PROCEDURES/IMAGIN/30 (Sheri): Left heart catheterization with selective coronary angiography. Access attempted via right radial artery, aborted due to tortuosity and switched to right femoral artery. Findings: Rt dominant rhea circulation. 30-40 % ostial LAD stenosis, 30% mid LAD stenosis, 20% mid LCX stenosis, mild diffuse irregularities of the RCA. 04/16 (Susan): Ascending aortic replacement with a 28 mm Hemashield graft. Prophylactic AtriClip ligation of the left atrial appendage. ABBREVIATED HOSPITAL COURSE BY ACTIVE PROBLEM LIST: 1. Aneurysmal ascending aorta - Replaced from STJ to innominate with dacron interposition graft. Stable early postop course. No tachyarrhythmias. Moderate fluid overload gradually diuresed. Antithrombotic prophylaxis with ASA alone. SBP well controlled without medication. Prone to bradycardia and BB avoided. 2. Acute expected blood loss anemia - Stable. No transfusions. 3. Nonobstructive CAD with preserved LV systolic fx - Stable. Secondary prevention w ASA and statin. Baseline HR upper 40s-50s. Postop HR generally < 65. BB avoided. DISCHARGE CLINICAL INFORMATION: Sternum grossly stable. Sternotomy CDI, sutured, +Dermabond. HR 50s-70s. SBP 110s. SpO2 83% RA, correcting to 92% 1 lpm rest and 2 lpm activity. Wt 3.6 kg above admission at 84.2 kilos. Hgb 12.4, HCT 36.1, Plt 112, Na 141, K 4.2, Cr 1.0 DISCHARGE MEDICATIONS: As on admission with the following adjustments: NEW prescriptions: 1. Lasix 40 mg daily until back to baseline weight and no swelling. 2. Klor-Con 20 meq daily with lasix. 3. [place] 5/325 one half to two tabs prn incisional discomfort. 4. Oxygen continuously at 1 Lpm rest and 2 Lpm activity, or as directed by SpO2. 5. OTC: ASA 81 mg daily. FOLLOW UP APPOINTMENTS: 1. CV surgery: with Dr Davis at [facility] on 04/29 at 10:30 am. 2. Cardiology: with Dr Varela at [facility] within 4-6 weeks. Appointment to be established during surgical visit. FOLLOW UP TESTING: CXR prior to surgical appointment.
[2017-04-20] MEDS ORDERED: POTASSIUM CL 10 MEQ TAB PO ONE (10:00)
[2017-04-20 11:17] VITALS: BP 124/72; PULSE 65; RESP 18; TEMP 97.7; O2SAT 95
--- NOTE | 2017-04-20 14:45 | ASDISCHSUM ---
Discharge Information Plan Status:Home with No Needs Medically Cleared to Leave:04/19/2017 Discharge Date:04/20/2017 01:25 PM CM D/C Disposition:Home, Routine, Self-Care ADT D/C Disposition:Home, Routine, Self-Care Projected Discharge Date:04/20/2017 01:00 PM Transportation at D/C:Family Discharge Delay Reason: Follow-Up Date:04/20/2017 01:00 PM Discharge Slot: Final Diagnosis:CAD, Jose, AAA Placement Information Patient Contact Information Contact Name:SONIA Relationship: Address:[address] City:[place] Alternate Phone: [facility]/Zip Code:[place] [address] Email: Financial Information Financial Class: Primary Plan Desc:MEDICARE INPATIENT Primary Plan Number:[id number] Secondary Plan Desc:NORMA Secondary Plan Number:[id number] Assessment Information BC CM Progress Note CM Note CM Note Notes: Patient is POD #1 ascending aorta replacement with Dr Davis. He is stable and doing well; intial PT nat recommends home. He lives with his . No CM needs anticipated but if they arise, we will assist. Date Signed: 04/17/2017 11:57 AM Electronically Signed By:Leslie Irby RN Case Management Discharge Plan Note Case Management Discharge Discharge Order Complete? Answers: Yes Patient to Obtain Answers: via Family Medications Transportation Arranged Answers: Family/Friends Transport will Pick (Date 04/20/2017 01:00 PM & Time) Family Notified Answers: Yes Notes: to transport Discharge Comments Notes: Patient has been discharged home with . He has f/u appts with Inder Davis and [facility]. no other discharge needs at this time. Date Signed: 04/20/2017 12:35 PM Electronically Signed By:Charisma Hammond LCSW Intervention Information Intervention Type:*IM-Signed Date of Service:04/20/2017 02:44 PM Patient Type:Inpatient Staff Member:ASHLEIGH Hammond Judith Hours:0.25 Discipline:Casino Duty Manager Severity: Comment:
== END 2017-04-20 13:25 | disposition home or self-care (01) | DRG 217 ==
LOC: F3N 09:51 → FCATH 09:51 → UNDOADMIN 09:51 → F2W 16:21 → F3N 16:21 → F2W 17:37 → EDSTATUS 04-16 07:15 → F2W 04-16 08:26 → F2N 04-16 09:19 → F2W 04-16 09:19 → F2N 04-16 10:40 → F2W 04-17 12:08 → F2N 04-17 12:08 → F2W 04-17 17:30
PROVIDERS: ADMIT Thoracic Surgery (Cardiothoracic Vascular Surgery); ATTEND Thoracic Surgery (Cardiothoracic Vascular Surgery)
DX: I71.2 Thoracic aortic aneurysm, without rupture (principal); D62 Acute posthemorrhagic anemia; J98.11 Atelectasis; I25.10 Atherosclerotic heart disease of native coronary artery without angina pectoris; R00.1 Bradycardia, unspecified; I10 Essential (primary) hypertension; E78.5 Hyperlipidemia, unspecified; F41.8 Other specified anxiety disorders; R09.02 Hypoxemia; R73.9 Hyperglycemia, unspecified; Z87.891 Personal history of nicotine dependence
CPT/HCPCS: 82947-QW; 97116-GP; 97161-GP; 97166-GO; 97530-GO; 97530-GP; 97535-GO; C1760; C1768; C1769; G8978-GP-CI; G8979-GP-CI; G8980-GP-CI; G8987-GO-CI; G8987-GO-CK; G8988-GO-CI; G8989-GO-CI; J0153; J0282; J0690; J1100; J1170; J1265; J1644; J1815; J1885; J2001; J2150; J2250; J2260; J2370; J2405; J2704; J2720; J2930; J3010; J7060; P9041; Q9967

== ENCOUNTER → 2017-04-29 | Outpatient (CLI) | payer OTHER | LOC: FIMAGING 09:47 | PROVIDERS: ATTEND Thoracic Surgery (Cardiothoracic Vascular Surgery) | DX: Z09 Encounter for follow-up examination after completed treatment for conditions other than malignant neoplasm (principal); Z98.890 Other specified postprocedural states; Z86.79 Personal history of other diseases of the circulatory system ==

== ENCOUNTER 2017-10-11 15:38 | Emergency (ER) | payer OTHER ==
[2017-10-11] MEDS ORDERED: hydrALAZINE 20 MG/ML VIAL IVP ONE (17:24)
--- NOTE | 2017-10-11 17:28 | EDPHY ---
H & P Time Seen by Provider: 10/11/17 17:05 HPI/ROS: CHIEF COMPLAINT: Dizziness, vision issues HISTORY OF PRESENT ILLNESS: Patient is a 58-year-old male with a history of aortic aneurysm an open heart surgery for repair in March 2017. He states that since his surgery he has had intermittent episodes of dizziness with his eyes crossing. He states the symptoms start with a slight"woozy"sensation. He describes and"aura"that the symptoms are coming. They last for short period of time and resolved with deep breathing. Today he was in his car when he had a repeat episode. His symptoms have now resolved. He denies any headache. No visual change. No focal deficits. No chest pain or shortness of breath. No nausea vomiting. No abdominal pain. REVIEW OF SYSTEMS: My complete review of systems is negative except as mentioned in the HPI. Past Medical/Surgical History: Includes hyperlipidemia, depression, aortic aneurysm Past surgical history: Includes aortic aneurysm repair Social history: Patient does not smoke Smoking Status: Former smoker Physical Exam: 36.6, 175/93, 54, 18, 95% on room air GENERAL: Well-appearing, in no acute distress, alert. HEENT: Eyes normal to inspection, normal pharynx, no signs of dehydration. NECK: No thyromegaly, no lymphadenopathy, supple. RESPIRATORY: Clear to auscultation bilaterally, no rales, rhonchi or wheezing. CVS: Regular rate and rhythm, no rubs, murmurs, or gallops. Sternotomy scar. ABDOMEN: Soft, nontender, nondistended, no organomegaly. No pulsatile mass. BACK: Normal to inspection, no CVA tenderness. SKIN: Normal color, no rash, warm, dry. No pallor. EXTREMITIES: No pedal edema, no calf tenderness, no Homans sign or cords, no joint swelling. NEURO/PSYCH: Higher functions: Alert and Oriented x3. Normal speech and cognition. Normal mood and affect. Cranial nerves: Normal as tested. Cerebellar: Normal as tested. Good finger to nose, good [id number], normal gait. Peripheral exam: Normal motor exam. Normal sensation. Normal reflexes. Constitutional: Initial Vital Signs Temperature (C) 36.6 C 10/11/17 15:47 Heart Rate 54 L 10/11/17 15:47 Respiratory Rate 18 10/11/17 15:47 Blood Pressure 175/93 H 10/11/17 15:47 O2 Sat (%) 95 10/11/17 15:47 O2 Delivery Mode Room Air Allergies/Adverse Reactions: No Known Allergies Allergy (Verified 10/11/17 15:47) Home Medications: Medication Instructions Recorded Atorvastatin Calcium [Lipitor 80 80 mg PO HS 03/11/17 mg] Herbals/Supplements -Info Only 1 ea PO DAILY 03/11/17 MIRTAZAPINE [Remeron 7.5 mg] 7.5 mg PO HS 03/11/17 Multivitamins [Multivitamin (*)] 1 each PO DAILY 03/11/17 [place]-3 Fatty Acids [Fish Oil 1000 1,000 mg PO DAILY 03/11/17 mg (*)] PARoxetine HCL [Paxil 20mg (*)] 20 mg PO HS 03/11/17 clonazePAM [Klonopin (*)] 0.25 mg PO HS 04/14/17 Acetaminophen [Tylenol 325mg (*)] 325 - 650 mg PO Q4HRS PRN tab 04/20/17 Aspirin [Aspirin 81mg (*)] 81 mg PO DAILY tab.chew 04/20/17 Furosemide [Lasix 40 MG (*)] 40 mg PO DAILY #30 tab 04/20/17 Hydrocodone/APAP 5/325 [[place] 1 - 2 tab PO Q4-6PRN PRN #50 tab 04/20/17 5/325 (*)] Potassium Cl [Klor-Con 20 meq (*)] 20 meq PO DAILY #30 tab 04/20/17 Medical Decision Making - Diagnostics Imaging Results: Imaging Impressions Head CT 10/11/17 17:33 Impression: Normal brain. No acute intracranial hemorrhage or evidence of ischemia. Findings discussed with Emergency Department physician, TAMANNA AVILES at 18:08. ED Course/Re-evaluation: In the emergency department I discussed possible etiologies with the patient. I answered all his questions. An IV was placed. Laboratory studies, EKG and head CT were ordered. Patient had repeat blood pressure taken while I was in the room and it was 182/100. Because of this he was given hydralazine 10 mg IV. 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 He states he normally has a low heart rate. EKG: Sinus bradycardia at 47. Left axis deviation. No ST or T-wave abnormality. The patient's CBC and chemistry unremarkable. Troponin was negative. Head CT: No acute disease. please refer the dictated report. 18 20: I rechecked the patient. He was doing well. He had no focal neurologic deficits. Normal neuro exam. No complaints. He was given warnings prior to leaving. He will follow up with Neurology. Differential Diagnosis: My differential includes but is not limited to ischemic CVA, hemorrhagic CVA, dissection, aneurysm, ACS, acute TN, dysrhythmia, electrolyte abnormality, sugar abnormality - Data Points Laboratory Results: Laboratory Results 10/11/17 17:07 10/11/17 17:07 10/11/17 10/11/17 10/11/17 17:52 17:07 17:07 WBC 6.28 10^3/uL 10^3/uL (3.80-9.50) RBC 5.03 10^6/uL 10^6/uL (4.40-6.38) Hgb 16.2 g/dL g/dL (13.7-17.5) Hct 46.1 % % (40.0-51.0) MCV 91.7 fL fL (81.5-99.8) MCH 32.2 pg pg (27.9-34.1) MCHC 35.1 g/dL g/dL (32.4-36.7) RDW 13.6 % % (11.5-15.2) Plt Count 164 10^3/uL 10^3/uL (150-400) MPV 9.4 fL fL (8.7-11.7) Neut % (Auto) 60.4 % % (39.3-74.2) Lymph % (Auto) 24.0 % % (15.0-45.0) [place] % (Auto) 9.6 % % (4.5-13.0) Eos % (Auto) 4.5 % % (0.6-7.6) Baso % (Auto) 1.0 % % (0.3-1.7) Nucleat RBC Rel Count 0.0 % % (0.0-0.2) Absolute Neuts (auto) 3.80 10^3/uL 10^3/uL (1.70-6.50) Absolute Lymphs (auto) 1.51 10^3/uL 10^3/uL (1.00-3.00) Absolute Monos (auto) 0.60 10^3/uL 10^3/uL (0.30-0.80) Absolute Eos (auto) 0.28 10^3/uL 10^3/uL (0.03-0.40) Absolute Basos (auto) 0.06 10^3/uL 10^3/uL (0.02-0.10) Absolute Nucleated RBC 0.00 10^3/uL 10^3/uL (0-0.01) Immature Gran % 0.5 % % (0.0-1.1) Immature Gran # 0.03 10^3/uL 10^3/uL (0.00-0.10) Sodium 143 mEq/L mEq/L (135-145) Potassium 4.3 mEq/L mEq/L (3.3-5.0) Chloride 104 mEq/L mEq/L (97-110) Carbon Dioxide 29 mEq/l mEq/l (22-31) Anion Gap 10 mEq/L mEq/L (8-16) BUN 25 mg/dL H mg/dL (7-23) Creatinine 1.2 mg/dL mg/dL (0.7-1.3) Estimated GFR 60 Glucose 93 mg/dL mg/dL (70-100) Calcium 9.4 mg/dL mg/dL (8.5-10.4) POC Troponin I 0.00 ng/mL ng/mL (0.00-0.08) Medications Given: Discontinued Medications Hydralazine HCl (Apresoline) 10 mg IVP EDNOW ONE Stop: 10/11/17 17:25 Last Admin: 10/11/17 17:31 Dose: 10 mg Point of Care Test Results: Chemistry 10/11/17 17:52 POC Troponin I 0.00 ng/mL ng/mL (0.00-0.08) Departure - Departure Disposition: Home, Routine, Self-Care Clinical Impression: Dizziness Condition: Good Instructions: Dizziness (ED) Additional Instructions: Return with increasing dizziness, headache, weakness, numbness, or any other concerns. Referrals: Keith Owens DO [Doctor of Osteopathy] - 2-3 days without fail
--- NOTE | 2017-10-11 17:37 | CPEKG ---
Heart Rate: 47 RR Interval: 1277 P-R Interval: 184 QRSD Interval: 86 QT Interval: 480 QTC Interval: 425 P [place]: 33 QRS [place]: -34 T Wave [place]: 62 EKG Severity - OTHERWISE NORMAL ECG - EKG Impression: SINUS BRADYCARDIA EKG Impression: LEFT AXIS DEVIATION Electronically Signed By: Keith Sanchez 11-Oct-2017 21:36:00
[2017-10-11 18:19] LABS: PLATELET COUNT 164 10^3/uL (150-400)
[2017-10-11 18:36] VITALS: BP 163/81
== END 2017-10-11 18:38 | disposition home or self-care (01) ==
DX: R42 Dizziness and giddiness (principal); Z79.82 Long term (current) use of aspirin; Z87.891 Personal history of nicotine dependence
CPT/HCPCS: 70450; 93005; 96374; 99285; J0360; 84484-PO

== ENCOUNTER 2018-06-04 05:23 | Emergency (ER) | payer OTHER ==
[2018-06-04] MEDS ORDERED: KETOROLAC 15 MG/1 ML SDV IVP ONE (05:46)
[2018-06-04] MEDS ORDERED: NS 1,000 ML IV ONE (05:46)
--- NOTE | 2018-06-04 05:47 | EDPHY ---
H & P Stated Complaint: Abdominal pain Time Seen by Provider: 06/04/18 05:36 HPI/ROS: Chief Complaint: Abdominal pain HPI: 67-year-old male began having epigastric and right upper quadrant abdominal pain about 8 hr ago. He did vomit once. No diarrhea or constipation did. Did have a small stool. No black or blood. No fevers or chills. Pain is migrated more to the right flank. No urinary urgency or frequency. Does have a history of a thoracic aortic aneurysm repair a year ago. He has not had any chest pain or shortness of breath. No abdominal surgeries. No recent fevers or chills. No cough. There are no aggravating or alleviating factors. Pain is about a 6/10. ROS: 10 systems were reviewed and were negative except those elements noted in the HPI. PMH: Thoracic aortic aneurysm repair Social History: No smoking, no alcohol, no recreational drug use Family History: non-contributory Physical Exam: Gen: Awake, Alert, No Distress HEENT: Nose: no rhinorrhea Eyes: PERRLA, EOMI Mouth: Moist mucosa Neck: Supple, no JVD Chest: nontender, lungs clear to auscultation Heart: S1, S2 normal, no murmur Abd: Soft, very mild right upper lateral abdominal tenderness, no guarding, no Love sign, no lower abdominal tenderness, no epigastric tenderness Back: no CVA tenderness, no midline tenderness Ext: no edema, non-tender Skin: no rash Neuro: CN II-XII intact, Sensation grossly intact, Strength 5/5 in bilateral upper and lower extremities - Personal History Current Tetanus/Diphtheria Vaccine: Unsure Current Tetanus Diphtheria and Acellular Pertussis (TDAP): Unsure - Medical/Surgical History Hx Asthma: No Hx Chronic Respiratory Disease: No Hx Diabetes: No Hx Cardiac Disease: No Hx Renal Disease: No Hx Cirrhosis: No Hx Alcoholism: No Hx HIV/AIDS: No Hx Splenectomy or Spleen Trauma: No Other PMH: hyperlipidemia, depression, AAA - Social History Smoking Status: Former smoker Constitutional: Initial Vital Signs Temperature (C) 36.3 C 06/04/18 05:27 Heart Rate 48 L 06/04/18 05:27 Respiratory Rate 16 06/04/18 05:27 Blood Pressure 162/84 H 06/04/18 05:27 O2 Sat (%) 97 06/04/18 05:27 O2 Delivery Mode Room Air Allergies/Adverse Reactions: No Known Allergies Allergy (Verified 06/04/18 05:26) Home Medications: Medication Instructions Recorded Atorvastatin Calcium [Lipitor 80 80 mg PO HS 03/11/17 mg] Herbals/Supplements -Info Only 1 ea PO DAILY 03/11/17 MIRTAZAPINE [Remeron 7.5 mg] 7.5 mg PO HS 03/11/17 Multivitamins [Multivitamin (*)] 1 each PO DAILY 03/11/17 [place]-3 Fatty Acids [Fish Oil 1000 1,000 mg PO DAILY 03/11/17 mg (*)] PARoxetine HCL [Paxil 20mg (*)] 20 mg PO HS 03/11/17 Acetaminophen [Tylenol 325mg (*)] 325 - 650 mg PO Q4HRS PRN tab 04/20/17 Aspirin [Aspirin 81mg (*)] 81 mg PO DAILY tab.chew 04/20/17 Potassium Cl [Klor-Con 20 meq (*)] 20 meq PO DAILY #30 tab 04/20/17 Medical Decision Making ED Course/Re-evaluation: 67-year-old male presenting with very lateral right flank pain with reproducible tenderness. Abdomen is soft and benign. I think this is more likely musculoskeletal than intra-abdominal. LFTs, renal function and lipase are completely normal. CBC is unremarkable. Remainder is abdominal exam is soft and benign. Urinalysis is negative. Symptoms consistent likely with musculoskeletal flank pain. Will discharge with follow-up with primary care physician. - Data Points Laboratory Results: Laboratory Results 06/04/18 05:45 06/04/18 05:45 06/04/18 06/04/18 06/04/18 06:30 05:45 05:45 WBC 6.97 10^3/uL 10^3/uL (3.80-9.50) RBC 4.69 10^6/uL 10^6/uL (4.40-6.38) Hgb 15.6 g/dL g/dL (13.7-17.5) Hct 44.7 % % (40.0-51.0) MCV 95.3 fL fL (81.5-99.8) MCH 33.3 pg pg (27.9-34.1) MCHC 34.9 g/dL g/dL (32.4-36.7) RDW 13.0 % % (11.5-15.2) Plt Count 157 10^3/uL 10^3/uL (150-400) MPV 9.0 fL fL (8.7-11.7) Neut % (Auto) 86.5 % H % (39.3-74.2) Lymph % (Auto) 8.8 % L % (15.0-45.0) [place] % (Auto) 3.6 % L % (4.5-13.0) Eos % (Auto) 0.3 % L % (0.6-7.6) Baso % (Auto) 0.4 % % (0.3-1.7) Nucleat RBC Rel Count 0.0 % % (0.0-0.2) Absolute Neuts (auto) 6.03 10^3/uL 10^3/uL (1.70-6.50) Absolute Lymphs (auto) 0.61 10^3/uL L 10^3/uL (1.00-3.00) Absolute Monos (auto) 0.25 10^3/uL L 10^3/uL (0.30-0.80) Absolute Eos (auto) 0.02 10^3/uL L 10^3/uL (0.03-0.40) Absolute Basos (auto) 0.03 10^3/uL 10^3/uL (0.02-0.10) Absolute Nucleated RBC 0.00 10^3/uL 10^3/uL (0-0.01) Immature Gran % 0.4 % % (0.0-1.1) Immature Gran # 0.03 10^3/uL 10^3/uL (0.00-0.10) Sodium 140 mEq/L mEq/L (135-145) Potassium 4.1 mEq/L mEq/L (3.5-5.2) Chloride 107 mEq/L mEq/L (97-110) Carbon Dioxide 22 mEq/l mEq/l (22-31) Anion Gap 11 mEq/L mEq/L (6-14) BUN 22 mg/dL mg/dL (7-23) Creatinine 1.1 mg/dL mg/dL (0.7-1.3) Estimated GFR > 60 Glucose 156 mg/dL H mg/dL (70-100) Calcium 9.5 mg/dL mg/dL (8.5-10.4) Total Bilirubin 0.8 mg/dL mg/dL (0.1-1.4) AST 33 IU/L IU/L (17-59) ALT 44 IU/L IU/L (21-72) Alkaline Phosphatase 88 IU/L IU/L (38-126) Total Protein 7.6 g/dL g/dL (6.3-8.2) Albumin 4.5 g/dL g/dL (3.5-5.0) Lipase 59 IU/L IU/L (23-300) Urine Color YELLOW Urine Appearance CLEAR Urine pH 5.0 (5.0-7.5) Ur Specific [place] 1.025 (1.002-1.030) Urine Protein NEGATIVE (NEGATIVE) Urine Ketones NEGATIVE (NEGATIVE) Urine Blood NEGATIVE (NEGATIVE) Urine Nitrate NEGATIVE (NEGATIVE) Urine Bilirubin NEGATIVE (NEGATIVE) Urine Urobilinogen NEGATIVE EU EU (0.2-1.0) Ur Leukocyte Esterase NEGATIVE (NEGATIVE) Urine Glucose NEGATIVE (NEGATIVE) Medications Given: Discontinued Medications Fentanyl (Sublimaze) 50 mcg IVP EDNOW ONE Stop: 06/04/18 06:32 Last Admin: 06/04/18 06:37 Dose: 50 mcg Sodium Chloride (Ns) 1,000 mls @ 0 mls/hr IV ONCE ONE; Wide Open PRN Reason: Protocol Stop: 06/04/18 05:47 Last Admin: 06/04/18 05:55 Dose: 1,000 mls Ketorolac Tromethamine (Toradol) 15 mg IVP EDNOW ONE Stop: 06/04/18 05:47 Last Admin: 06/04/18 05:56 Dose: 15 mg Departure - Departure Disposition: Home, Routine, Self-Care Clinical Impression: Flank pain Condition: Good Instructions: Flank Pain (ED) Additional Instructions: You may take hydrocodone as needed for pain. Do not drive or operate heavy machinery 1 this medication. Follow up with primary care physician in 2-3 days for further evaluation. Return to the emergency department for increasing abdominal pain, fevers, chills , nausea, vomiting, or any other concerns. Referrals: Catarino Zarate MD [Primary Care Provider] - As per Instructions
[2018-06-04 05:57] LABS: PLATELET COUNT 157 10^3/uL (150-400)
[2018-06-04] MEDS ORDERED: fentaNYL 100 MCG/2 ML INJ IVP ONE (06:31)
[2018-06-04] MEDS ORDERED: HYDROCOD/APAP 5/325 PREPACK#6 BTL TAKEHOME ONE (06:55)
[2018-06-04 07:41] VITALS: BP 160/100
== END 2018-06-04 07:41 | disposition home or self-care (01) ==
DX: R10.11 Right upper quadrant pain (principal); E86.9 Volume depletion, unspecified; E78.5 Hyperlipidemia, unspecified; F32.9 Major depressive disorder, single episode, unspecified; Z87.891 Personal history of nicotine dependence
CPT/HCPCS: 96361; 96374; 96375; 99284; J1885; J3010

== ENCOUNTER → 2018-06-10 | Outpatient (CLI) | payer OTHER | LOC: BMCIMAGING 08:33 | PROVIDERS: ATTEND Internal Medicine | DX: R10.11 Right upper quadrant pain (principal) ==

== ENCOUNTER → 2018-07-07 | Outpatient (CLI) | payer OTHER ==
[~2018-07-07] MED LIST changes: +GADOBUTROL 10 ML VIAL IVP ONE; -IOPAMIDOL (ISOVUE 370) 100 ML BTL IV ONE
== END ==
LOC: FIMAGING 13:21
PROVIDERS: ATTEND Internal Medicine Interventional Cardiology
DX: R42 Dizziness and giddiness (principal); H53.9 Unspecified visual disturbance; I71.2 Thoracic aortic aneurysm, without rupture; I25.10 Atherosclerotic heart disease of native coronary artery without angina pectoris
CPT/HCPCS: 70553; A9585